=== PATIENT | male | born 2000 | race Caucasian/White ===

== ENCOUNTER → 2021-04-03 | Outpatient (CLI) | payer MEDICAID, OTHER ==
--- NOTE | 2021-04-03 11:46 | Diagnostic Imaging Report ---
INDICATION: LEFT WRIST PAIN NO KNOWN TRAUMA TECHNIQUE: 3 views of the left wrist CORRELATION STUDY: None FINDINGS: The osseous structures of the wrist have an unremarkable appearance. Alignment is anatomic. There is no acute bony abnormality. The visualized soft tissues appearing unremarkable. IMPRESSION: 1. Negative examination of the wrist. Dictated by: Dictated on workstation # [id number]
== END ==
LOC: RAD 10:58
PROVIDERS: ATTEND Nurse Practitioner Family
DX: M25.532 Pain in left wrist (principal)
CPT/HCPCS: 73110